=== PATIENT | female | born 1970 | race Two or more races ===

== ENCOUNTER 2024-01-13 13:45 | Inpatient (IN) | payer OTHER ==
[~2024-01-13] VITALS: Ht 152.4 cm; Wt 133.8 kg
[~2024-01-13 13:45] MED LIST: COZAAR100 MG
--- NOTE | 2024-01-13 13:57 | NUR ---
PACIENTE ALERTA Y ORIENTADA X 3. REFIERE CANSANCIO, DOLOR CORPORAL Y ASMA DESDE HACE 1 SEMANA. REFIERE FUE A CARDIOLOGO Y KEILA LE REALIZA EKG Y LE ENTREGA REFERIDO PARA ER. PACIENTE CON PULSO EN 156 AL REALIZAR TRIAGE.
[2024-01-13] MEDS ORDERED: AVALIDE 300-121 EACH PO (14:31)
[2024-01-13] MEDS ORDERED: DILTIAZEM HCL 25 MG/5 ML VIAL IV ONE (15:00)
--- NOTE | 2024-01-13 15:10 | NUR ---
PACIENTE EVALUADA POR QUIEN ORDENA TRATAMIENTO MEDICO, SE LE ORIENTA A PACIENTE SOBRE EL MISMO Y REFIERE ENTENDER, SE LE COLECTAN MUESTRAS Y SE CANALIZA BAJO MEDIDAS ASEPTICAS.
[2024-01-13 15:42] LABS: HEMATOCRIT 43.4 % (36.0-45.00); HEMOGLOBIN 13.2 g/dL (12.0-15.00); MEAN CELL VOLUME 75.2 fL (80.00-100.00); MEAN CORPUSCULAR HEMOGLOBIN 22.9 pg (27.00-32.0); MEAN CORPUSCULAR HGB CONC 30.5 g/dl (32.0-36.0); PLATELET COUNT 177 K/uL (150-450); RED BLOOD COUNT 5.78 M/uL (4.00-6.00); RED CELL DISTRIBUTION WIDTH 18.1 % (11.5-14.5)
[2024-01-13] MEDS ORDERED: AMIODARONE HCL 50 MG/ML AMPUL IV ONE (15:45)
[2024-01-13 16:00] LABS: INR 1.2; PARTIAL THROMBOPLASTIN TIME 24.3 SECONDS (22.0-34.0); PROTHROMBIN TIME 12.9 SECONDS (9.0-11.5)
[2024-01-13 16:06] LABS: BILIRUBIN TOTAL 1.43 mg/dL (0.3-1.2); CALCIUM 8.2 mg/dL (8.5-10.1); CREATININE SERUM 0.81 mg/dL (0.55-1.02); GFR 73.68; GLOBULINA 3.3 G/DL (2.4-3.5); POTASSIUM 3.9 mEq/L (3.5-5.1); TOTAL PROTEIN 6.3 gm/dL (6.4-8.2)
--- NOTE | 2024-01-13 17:29 | NUR ---
SE RECIBE PACIENTE ALERTA Y ORIENTADA X3. SE OBSERVA CON VENTURY MASK AL 50% EL CUAL TOLERA. PACIENTE CON DOS CANALIZACIONES EN RA Y LA CON ANGIOS #20 QUE SE ENCUENTRAN PATENTES, LIBRES DE EDEMA Y PROCESOS INFECCIOSOS. SE OBSERVA BAJANDO INFUSION DE NEXTERONE 360/200ML BAJANDO A 33ML/HR. PACIENTE SE ENCUENTRA CONECTADA A MONITOR CARDIACO Y OXIMETRIA DE PULSO CONTINUA PRESENTANDO VITALES DE BP: 101/77 (90), HR: 146 Y SPO2: 96%. EXTERMIDADES SUPERIORES LIBRES DE EDEMA. SE OBSERVA LEVE EDEMA EN EXTREMIDADES INFERIORES. SE MANTIENE EN OBSERVACION POR CAMBIOS SIGNIFICATIVOS EN [place] CONDICION. PENDIENTE CONSULTA CON MEDICINA INTERNA.
[2024-01-13 18:51] LABS: ABG PH 7.358 (7.35-7.45); ABG PO2 49.7 mmHg (80-100); ABG pCO2 53.2 mmHg (35-45); BASE EXCESS 2.5 mmol/l; BICARBONATE 29.2 mmol/l (23-25); SaO2 83.3 %; Tco2 30.8 mmol/l
[2024-01-13 18:52] LABS: allen test SATISFACTORY; o2 32 %; puncture site RADIAL RIGHT
[2024-01-13 19:28] VITALS: BP 116/55; O2SAT 99
[2024-01-13] MEDS ORDERED: IPRATROPIUM BROMIDE 0.5 MG/2.5 ML AMPUL.NEB IH SCH (19:45)
[2024-01-13] MEDS ORDERED: METHYLPREDNISOLONE SOD SUCC 125 MG VIAL IV ONE (19:45)
[2024-01-13] MEDS ORDERED: LEVALBUTEROL HCL 1.25 MG/3 ML SOLUTION IH SCH (19:45)
[2024-01-13] MEDS ORDERED: ACETAMINOPHEN 500 MG GEL..CAP PO PRN (19:45)
[2024-01-13 20:52] LABS: BILIRUBIN TOTAL 1.31 mg/dL (0.3-1.2); BILIRUBIN,CONJUGATED 0.66 mg/dL (0.0-0.2); BILIRUBIN,UNCONJUGATED 0.65 mg/dL (0.0-0.6)
[2024-01-13] MEDS ORDERED: ENOXAPARIN SODIUM 100 MG/ML SYRINGE SUBCUTANEO SCH (21:00)
[2024-01-13 21:28] LABS: ABG PH 7.327 (7.35-7.45); ABG PO2 62.8 mmHg (80-100); ABG pCO2 57.9 mmHg (35-45); BASE EXCESS 2.1 mmol/l; BICARBONATE 29.7 mmol/l (23-25); SaO2 89.9 %; Tco2 31.4 mmol/l
[2024-01-13 21:29] LABS: allen test SATISFACTORY; o2 100 %; puncture site RADIAL LEFT
[2024-01-13] MEDS ORDERED: 0.9 % SODIUM CHLORIDE 1,000 ML IV SCH (23:30)
[2024-01-13 23:31] VITALS: BP 119/91; O2SAT 90
[2024-01-14] VITALS (26 sets, daily range): BP systolic 78–142; BP diastolic 52–85; O2SAT 89–100
[2024-01-14] MEDS ORDERED: AZITHROMYCIN 500 MG VIAL IV SCH ×2 (00:10→21:00)
[2024-01-14] MEDS ORDERED: AZITHROMYCIN 500 MG VIAL IV STA (00:10)
[2024-01-14] MEDS ORDERED: CEFTRIAXONE SODIUM 2,000 MG VIAL IV SCH ×2 (00:11→17:00)
[2024-01-14] MEDS ORDERED: CEFTRIAXONE SODIUM 2,000 MG VIAL IV STA (00:11)
[2024-01-14] MEDS ORDERED: IPRATROPIUM BROMIDE 0.5 MG/2.5 ML AMPUL.NEB IH SCH (01:00)
[2024-01-14 07:38] LABS: CHOL HDL RATIO 7.9 (0-5.0); TSH 1.3 uIU/mL (0.358-3.74)
[2024-01-14 08:59] LABS: PH,URINE 5.5 (5.0-8.0); URINE APPEARANCE Clear; URINE BILIRRUBIN Small (NEGATIVE); URINE BLOOD Negative; URINE COLOR Dark Yellow; URINE GLUCOSE Negative (NEGATIVE); URINE KETONE Negative (NEGATIVE); URINE LEUKOCYTE Negative; URINE NITRATE Negative
[2024-01-14] MEDS ORDERED: ENOXAPARIN SODIUM SUBCUTANEO SCH (09:00)
[2024-01-14] MEDS ORDERED: ENOXAPARIN SODIUM 100 MG/ML SYRINGE SUBCUTANEO SCH (09:00)
[2024-01-14] MEDS ORDERED: HYDROCHLOROTHIAZIDE 25 MG TABLET PO SCH (09:00)
[2024-01-14] MEDS ORDERED: IRBESARTAN 300 MG TABLET PO SCH (09:00)
[2024-01-14] MEDS ORDERED: FAMOTIDINE/PF 20 MG in 0.9 % SODIUM CHLORIDE 8 ML IV PUSH SCH (09:00)
[2024-01-14 09:03] LABS: URINE BACTERIA 31.4 uL (0.0-1933); URINE CAST 7.48 uL (0.0-1.40); URINE EPITHELIAL CELLS 12.5 uL (0.0-38.8); URINE RBC 6.1 uL (0.0-20.8); URINE WBC 4.1 uL (0.0-23.2)
[2024-01-14 09:14] LABS: URINE PROTEIN 100 (NEGATIVE)
[2024-01-14] MEDS ORDERED: METOPROLOL TARTRATE 5MG/5ML AMPUL IV STA (09:21)
[2024-01-14] MEDS ORDERED: METOPROLOL SUCCINATE 100 MG TAB.SR.24H PO SCH ×2 (09:25→17:00)
[2024-01-14 12:32] LABS: ABG PH 7.303 (7.35-7.45); ABG PO2 64.1 mmHg (80-100); ABG pCO2 61.4 mmHg (35-45); BASE EXCESS 1.7 mmol/l; BICARBONATE 29.8 mmol/l (23-25); SaO2 89.7 %; Tco2 31.6 mmol/l
[2024-01-14 12:33] LABS: allen test SATISFACTORY; o2 21 %; puncture site RADIAL LEFT
[2024-01-14] MEDS ORDERED: ALTEPLASE 50 MG VIAL IV ONE (19:30)
[2024-01-14] MEDS ORDERED: SODIUM CHLORIDE 0.9% IV SCH (20:30)
[2024-01-14] MEDS ORDERED: HEPARIN SODIUM PORCINE IV SCH (20:30)
[2024-01-14 20:31] LABS: HEMATOCRIT 42.9 % (36.0-45.00); HEMOGLOBIN 13.7 g/dL (12.0-15.00); MEAN CELL VOLUME 74.1 fL (80.00-100.00); MEAN CORPUSCULAR HEMOGLOBIN 23.7 pg (27.00-32.0); PLATELET COUNT 180 K/uL (150-450); RED BLOOD COUNT 5.79 M/uL (4.00-6.00); RED CELL DISTRIBUTION WIDTH 18.6 % (11.5-14.5)
[2024-01-14 20:36] LABS: INR 1.21; PARTIAL THROMBOPLASTIN TIME 27.1 SECONDS (22.0-34.0)
[2024-01-14 20:44] LABS: ALBUMIN 2.9 gm/dL (3.4-5.0); BILIRUBIN TOTAL 0.8 mg/dL (0.3-1.2); CALCIUM 8.6 mg/dL (8.5-10.1); CREATININE SERUM 0.73 mg/dL (0.55-1.02); GFR 83.08; GLOBULINA 3.6 G/DL (2.4-3.5); POTASSIUM 5.13 mEq/L (3.5-5.1); TOTAL PROTEIN 6.5 gm/dL (6.4-8.2)
[2024-01-14 21:39] LABS: RH NEGATIVE
[2024-01-14] MEDS ORDERED: NOREPINEPHRINE BITARTRATE 4 MG in DEXTROSE 5 % IN WATER 250 ML IV SCH (22:30)
[2024-01-15] VITALS (17 sets, daily range): BP systolic 103–133; BP diastolic 63–93; O2SAT 93–100
[2024-01-15 12:18] LABS: ABG PO2 54.8 mmHg (80-100); ABG pCO2 48.9 mmHg (35-45); SaO2 88.9 %
[2024-01-15 12:19] LABS: BASE EXCESS 4.6 mmol/l; BICARBONATE 30.3 mmol/l (23-25); Tco2 31.8 mmol/l; allen test SATISFACTORY; puncture site RADIAL RIGHT
[2024-01-15 12:24] LABS: o2 100 %
[2024-01-15] MEDS ORDERED: HEPARIN SODIUM,PORCINE 5,000 UNITS/ML VIAL IJ SCH (13:00)
[2024-01-15] MEDS ORDERED: HEPARIN SODIUM,PORCINE 5,000 UNITS/ML VIAL IV SCH (17:00)
[2024-01-15 18:31] LABS: INR 1.22; PARTIAL THROMBOPLASTIN TIME 35.3 SECONDS (22.0-34.0); PROTHROMBIN TIME 13.1 SECONDS (9.0-11.5)
[2024-01-15] MEDS ORDERED: HEPARIN SODIUM,PORCINE 5,000 UNITS/ML VIAL IV STA (23:26)
[2024-01-16] VITALS (20 sets, daily range): BP systolic 83–153; BP diastolic 57–96; O2SAT 85–100
[2024-01-16 05:31] LABS: INR 1.16; PARTIAL THROMBOPLASTIN TIME 35.6 SECONDS (22.0-34.0); PROTHROMBIN TIME 12.5 SECONDS (9.0-11.5)
[2024-01-16] MEDS ORDERED: HEPARIN SODIUM,PORCINE 5,000 UNITS/ML VIAL IV SCH (08:00)
[2024-01-16] MEDS ORDERED: MIDAZOLAM HCL 2 MG/2 ML VIAL IV ONE (11:00)
[2024-01-16] MEDS ORDERED: FLUMAZENIL 0.5 MG/5 ML ML IV ONE (11:00)
[2024-01-16] MEDS ORDERED: FUROsemide 20 MG/2 ML VIAL IV NR (11:30)
[2024-01-16 14:46] LABS: HEMATOCRIT 42.7 % (36.0-45.00); HEMOGLOBIN 13.5 g/dL (12.0-15.00); MEAN CELL VOLUME 73.5 fL (80.00-100.00); MEAN CORPUSCULAR HEMOGLOBIN 23.3 pg (27.00-32.0); MEAN CORPUSCULAR HGB CONC 31.7 g/dl (32.0-36.0); RED BLOOD COUNT 5.82 M/uL (4.00-6.00); RED CELL DISTRIBUTION WIDTH 18.3 % (11.5-14.5)
[2024-01-16 14:56] LABS: PLATELET COUNT 117 K/uL (150-450)
[2024-01-16 15:05] LABS: ALBUMIN 2.9 gm/dL (3.4-5.0); BILIRUBIN TOTAL 0.9 mg/dL (0.3-1.2); CALCIUM 8.7 mg/dL (8.5-10.1); CREATININE SERUM 0.74 mg/dL (0.55-1.02); GFR 81.78; GLOBULINA 3.8 G/DL (2.4-3.5); INR 1.21; PARTIAL THROMBOPLASTIN TIME 36.1 SECONDS (22.0-34.0); POTASSIUM 3.93 mEq/L (3.5-5.1); TOTAL PROTEIN 6.7 gm/dL (6.4-8.2)
[2024-01-16] MEDS ORDERED: HEPARIN SODIUM,PORCINE 5,000 UNITS/ML VIAL IV ONE ×2 (16:00→21:45)
[2024-01-16 21:12] LABS: INR 1.15; PROTHROMBIN TIME 12.4 SECONDS (9.0-11.5)
[2024-01-16 21:23] LABS: PARTIAL THROMBOPLASTIN TIME 51.3 SECONDS (22.0-34.0)
[2024-01-17] VITALS (9 sets, daily range): BP systolic 118–132; BP diastolic 73–91; O2SAT 89–98
[2024-01-17 07:48] LABS: INR 1.16; PROTHROMBIN TIME 12.5 SECONDS (9.0-11.5)
[2024-01-17] MEDS ORDERED: RIVAROXABAN 20 MG TABLET PO SCH (09:45)
[2024-01-17 11:26] LABS: INR 1.19; PROTHROMBIN TIME 12.8 SECONDS (9.0-11.5)
[2024-01-17 11:29] LABS: PARTIAL THROMBOPLASTIN TIME 53.5 SECONDS (22.0-34.0)
[2024-01-17] MEDS ORDERED: AMIODARONE HCL 200 MG TABLET PO SCH (17:00)
[2024-01-17 20:12] LABS: ABG PH 7.353 (7.35-7.45); ABG PO2 94.4 mmHg (80-100); ABG pCO2 57.3 mmHg (35-45); BASE EXCESS 3.9 mmol/l; BICARBONATE 31.1 mmol/l (23-25); Tco2 32.9 mmol/l
[2024-01-17 20:13] LABS: allen test SATISFACTORY; o2 94 %; puncture site RADIAL RIGHT
[2024-01-18 04:05] VITALS: BP 130/85; O2SAT 89
[2024-01-18 07:43] VITALS: BP 145/95; O2SAT 82
[2024-01-18 08:32] LABS: INR 1.23; PARTIAL THROMBOPLASTIN TIME 28.2 SECONDS (22.0-34.0); PROTHROMBIN TIME 13.2 SECONDS (9.0-11.5)
[2024-01-18 11:48] LABS: ABG PH 7.374 (7.35-7.45)
[2024-01-18 11:49] LABS: BASE EXCESS 5.5 mmol/l; BICARBONATE 32.5 mmol/l (23-25); Tco2 34.2 mmol/l; allen test SATISFACTORY; o2 100 %; puncture site RADIAL RIGHT
[2024-01-18 12:21] VITALS: BP 136/85; O2SAT 91
[2024-01-18 15:19] VITALS: BP 138/84; O2SAT 98
[2024-01-18 19:58] VITALS: BP 134/85; O2SAT 99
[2024-01-18 23:15] VITALS: BP 146/97; O2SAT 95
[2024-01-19 03:59] VITALS: BP 137/89; O2SAT 100
[2024-01-19 07:29] VITALS: O2SAT 100
[2024-01-19] MEDS ORDERED: RIVAROXABAN 15 MG TABLET PO SCH (09:00)
[2024-01-19 09:09] LABS: HEMATOCRIT 41.5 % (36.0-45.00); HEMOGLOBIN 12.7 g/dL (12.0-15.00); MEAN CELL VOLUME 74.6 fL (80.00-100.00); MEAN CORPUSCULAR HEMOGLOBIN 22.8 pg (27.00-32.0); MEAN CORPUSCULAR HGB CONC 30.6 g/dl (32.0-36.0); PLATELET COUNT 171 K/uL (150-450); RED BLOOD COUNT 5.57 M/uL (4.00-6.00); RED CELL DISTRIBUTION WIDTH 17.8 % (11.5-14.5)
[2024-01-19 09:29] LABS: INR 1.41; PARTIAL THROMBOPLASTIN TIME 31.1 SECONDS (22.0-34.0)
[2024-01-19 09:53] LABS: ALBUMIN 2.4 gm/dL (3.4-5.0); BILIRUBIN TOTAL 0.84 mg/dL (0.3-1.2); CALCIUM 8.7 mg/dL (8.5-10.1); CREATININE SERUM 0.47 mg/dL (0.55-1.02); GFR 138.09; GLOBULINA 3.7 G/DL (2.4-3.5); MAGNESIUM 2.2 mg/dL (1.8-2.4); POTASSIUM 4.15 mEq/L (3.5-5.1); TOTAL PROTEIN 6.1 gm/dL (6.4-8.2)
[2024-01-19 12:00] VITALS: BP 123/75; O2SAT 97
[2024-01-19 13:04] LABS: ABG PH 7.357 (7.35-7.45)
[2024-01-19 13:05] LABS: ABG PO2 138.1 mmHg (80-100); ABG pCO2 61.5 mmHg (35-45); BASE EXCESS 6.1 mmol/l; BICARBONATE 33.8 mmol/l (23-25); Tco2 35.7 mmol/l
[2024-01-19 13:06] LABS: allen test SATISFACTORY; o2 21 %; puncture site RADIAL LEFT
[2024-01-19 15:28] VITALS: BP 128/92; O2SAT 91
[2024-01-19 20:00] VITALS: BP 117/77; O2SAT 98
[2024-01-19 23:25] VITALS: BP 128/88; O2SAT 92
[2024-01-20] VITALS (15 sets, daily range): BP systolic 101–130; BP diastolic 71–108; O2SAT 95–100
[2024-01-20 06:01] LABS: URINE APPEARANCE Turbid; URINE BILIRRUBIN Small (NEGATIVE); URINE BLOOD Moderate; URINE COLOR Red; URINE GLUCOSE Negative (NEGATIVE); URINE KETONE Negative (NEGATIVE); URINE LEUKOCYTE Moderate; URINE NITRATE Positive
[2024-01-20 06:05] LABS: URINE BACTERIA 895.8 uL (0.0-1933); URINE EPITHELIAL CELLS 21.4 uL (0.0-38.8); URINE WBC 339.8 uL (0.0-23.2)
[2024-01-20 06:15] LABS: URINE PROTEIN 100 (NEGATIVE); URINE RBC > 10558.9 uL (0.0-20.8)
[2024-01-20 06:18] LABS: HEMATOCRIT 39.5 % (36.0-45.00); MEAN CELL VOLUME 74.4 fL (80.00-100.00); MEAN CORPUSCULAR HEMOGLOBIN 22.5 pg (27.00-32.0); MEAN CORPUSCULAR HGB CONC 30.3 g/dl (32.0-36.0); PLATELET COUNT 169 K/uL (150-450); RED BLOOD COUNT 5.31 M/uL (4.00-6.00); RED CELL DISTRIBUTION WIDTH 17.5 % (11.5-14.5)
[2024-01-20 06:19] LABS: URINE CRYSTALS MODERATE /HPF
[2024-01-20 06:59] LABS: ALBUMIN 2.3 gm/dL (3.4-5.0); BILIRUBIN TOTAL 0.89 mg/dL (0.3-1.2); CREATININE SERUM 0.51 mg/dL (0.55-1.02); GFR 125.67; POTASSIUM 4.13 mEq/L (3.5-5.1); TOTAL PROTEIN 6.3 gm/dL (6.4-8.2)
[2024-01-20] MEDS ORDERED: AMIODARONE HCL 50 MG/ML AMPUL IV ONE (09:30)
[2024-01-20] MEDS ORDERED: METOPROLOL TARTRATE 25 MG TABLET PO SCH (21:00)
[2024-01-20] MEDS ORDERED: FUROsemide 40 MG/4 ML VIAL IV SCH (21:00)
[2024-01-21] VITALS (22 sets, daily range): BP systolic 104–143; BP diastolic 79–106; O2SAT 96–100
[2024-01-21] MEDS ORDERED: SODIUM CHLORIDE/ALOE VERA 14.1 GM GEL..GRAM. NASAL SCH (12:00)
[2024-01-21] MEDS ORDERED: DILTIAZEM HCL 125 MG in 0.9 % SODIUM CHLORIDE 100 ML IV SCH (12:30)
[2024-01-21] MEDS ORDERED: LACTOBACILLUS ACIDOPHILUS 1 CAP CAP PO SCH (17:00)
[2024-01-21] MEDS ORDERED: MEROPENEM 500 MG/VIAL VIAL IV SCH (18:00)
[2024-01-21] MEDS ORDERED: LINEZOLID IN DEXTROSE 5% 300 ML IV SCH (21:00)
[2024-01-22] VITALS (23 sets, daily range): BP systolic 95–136; BP diastolic 70–106; O2SAT 86–100
[2024-01-22] MEDS ORDERED: hydrALAZINE HCL 20 MG VIAL IV PRN (16:45)
[2024-01-22] MEDS ORDERED: METOPROLOL TARTRATE 50 MG TABLET PO SCH (17:00)
[2024-01-22 19:24] LABS: ABG PH 7.418 (7.35-7.45)
[2024-01-22 19:25] LABS: ABG PO2 83.1 mmHg (80-100); ABG pCO2 62.1 mmHg (35-45); BASE EXCESS 11.8 mmol/l; BICARBONATE 39.2 mmol/l (23-25); SaO2 96.7 %; Tco2 41.1 mmol/l; allen test SATISFACTORY; o2 100 %; puncture site RADIAL LEFT
[2024-01-22] MEDS ORDERED: hydrALAZINE HCL 25 MG TABLET PO SCH (21:00)
[2024-01-23] VITALS (22 sets, daily range): BP systolic 83–118; BP diastolic 65–95; O2SAT 86–100
[2024-01-23] MEDS ORDERED: FUROsemide 40 MG/4 ML VIAL IV SCH (09:00)
[2024-01-24] VITALS (15 sets, daily range): BP systolic 102–120; BP diastolic 69–96; O2SAT 87–100
[2024-01-24 08:01] LABS: HEMATOCRIT 38.6 % (36.0-45.00); HEMOGLOBIN 12.1 g/dL (12.0-15.00); MEAN CELL VOLUME 72.9 fL (80.00-100.00); MEAN CORPUSCULAR HEMOGLOBIN 22.8 pg (27.00-32.0); MEAN CORPUSCULAR HGB CONC 31.2 g/dl (32.0-36.0); PLATELET COUNT 192 K/uL (150-450)
[2024-01-24 08:43] LABS: ALBUMIN 2.2 gm/dL (3.4-5.0); BILIRUBIN TOTAL 0.89 mg/dL (0.3-1.2); CALCIUM 8.1 mg/dL (8.5-10.1); CREATININE SERUM 0.48 mg/dL (0.55-1.02); GFR 134.77; GLOBULINA 3.5 G/DL (2.4-3.5); POTASSIUM 3.96 mEq/L (3.5-5.1); TOTAL PROTEIN 5.7 gm/dL (6.4-8.2)
[2024-01-24 08:44] LABS: C-REACTIVE PROTEIN 10.1 MG/DL (0.00-0.29)
[2024-01-24] MEDS ORDERED: METOPROLOL TARTRATE 100 MG TABLET PO SCH (17:00)
[2024-01-24] MEDS ORDERED: METOPROLOL TARTRATE 50 MG,METOPROLOL TARTRATE 25 MG PO SCH (17:00)
[2024-01-24] MEDS ORDERED: AMIODARONE HCL 200 MG TABLET PO SCH (17:00)
[2024-01-25] VITALS (22 sets, daily range): BP systolic 88–126; BP diastolic 66–98; O2SAT 91–100
[2024-01-26] VITALS (23 sets, daily range): BP systolic 86–127; BP diastolic 54–99; O2SAT 93–100
[2024-01-26 06:59] LABS: HEMATOCRIT 37.8 % (36.0-45.00); HEMOGLOBIN 11.7 g/dL (12.0-15.00); MEAN CELL VOLUME 73.3 fL (80.00-100.00); MEAN CORPUSCULAR HEMOGLOBIN 22.8 pg (27.00-32.0); MEAN CORPUSCULAR HGB CONC 31.1 g/dl (32.0-36.0); PLATELET COUNT 205 K/uL (150-450); RED BLOOD COUNT 5.16 M/uL (4.00-6.00); RED CELL DISTRIBUTION WIDTH 16.2 % (11.5-14.5)
[2024-01-26 07:06] LABS: CALCIUM 8.2 mg/dL (8.5-10.1); CREATININE SERUM 0.45 mg/dL (0.55-1.02); GFR 145.2; MAGNESIUM 1.7 mg/dL (1.8-2.4); PHOSPHOROUS 2.5 mg/dL (2.5-4.9); POTASSIUM 3.44 mEq/L (3.5-5.1)
[2024-01-26] MEDS ORDERED: ACETAZOLAMIDE SODIUM 500 MG VIAL IV SCH (09:00)
[2024-01-26 10:41] LABS: ABG PH 7.441 (7.35-7.45); BASE EXCESS 18.2 mmol/l; BICARBONATE 46.7 mmol/l (23-25); SaO2 90.7 %; Tco2 48.8 mmol/l
[2024-01-26 11:11] LABS: ABG PO2 54.6 mmHg (80-100); ABG pCO2 70.1 mmHg (35-45)
[2024-01-26 11:12] LABS: allen test SATISFACTORY; o2 100 %; puncture site RADIAL LEFT
[2024-01-26] MEDS ORDERED: MAGNESIUM SULFATE IN WATER 4 GM/100 ML PIGGYBACK IV NR (17:45)
[2024-01-26] MEDS ORDERED: POTASSIUM PHOS,M-BASIC-D-BASIC 15 MM in 0.9 % SODIUM CHLORIDE 250 ML IV ONE (21:15)
[2024-01-27] VITALS (22 sets, daily range): BP systolic 91–127; BP diastolic 64–99; O2SAT 93–100
[2024-01-28] VITALS (20 sets, daily range): BP systolic 80–121; BP diastolic 53–778; O2SAT 95–100
[2024-01-28 11:23] LABS: HEMOGLOBIN 11.2 g/dL (12.0-15.00); MEAN CELL VOLUME 73.4 fL (80.00-100.00); MEAN CORPUSCULAR HEMOGLOBIN 22.8 pg (27.00-32.0); PLATELET COUNT 226 K/uL (150-450); RED CELL DISTRIBUTION WIDTH 16.9 % (11.5-14.5)
[2024-01-28 12:17] LABS: BILIRUBIN TOTAL 0.78 mg/dL (0.3-1.2); CALCIUM 7.6 mg/dL (8.5-10.1); GFR 241.07; GLOBULINA 3.1 G/DL (2.4-3.5); POTASSIUM 3.52 mEq/L (3.5-5.1); TOTAL PROTEIN 5.1 gm/dL (6.4-8.2)
[2024-01-28 12:19] LABS: CREATININE SERUM 0.29 mg/dL (0.55-1.02)
[2024-01-29] VITALS (11 sets, daily range): BP systolic 82–107; BP diastolic 62–80; O2SAT 98–100
[2024-01-29] MEDS ORDERED: DILTIAZEM HCL 30 MG TABLET PO SCH (01:00)
[2024-01-30 04:00] VITALS: BP 94/61; O2SAT 98
[2024-01-30 06:57] VITALS: BP 106/68; O2SAT 96
[2024-01-30 12:00] VITALS: BP 112/76; O2SAT 94
[2024-01-30 15:28] VITALS: BP 96/60; O2SAT 100
[2024-01-30 20:56] VITALS: BP 104/76; O2SAT 100
[2024-01-30 23:07] VITALS: BP 109/78; O2SAT 99
[2024-01-31] MEDS ORDERED: DIGOXIN 0.25 MG/ML AMPUL IV SCH (01:00)
[2024-01-31 03:57] VITALS: BP 104/78; O2SAT 100
[2024-01-31 07:33] VITALS: BP 109/76; O2SAT 100
[2024-01-31 15:14] VITALS: BP 117/76; O2SAT 100
[2024-01-31] MEDS ORDERED: AMIODARONE HCL 50 MG/ML AMPUL IV ONE (18:00)
[2024-01-31 20:00] VITALS: BP 123/98; O2SAT 98
[2024-01-31 23:37] VITALS: BP 137/97
[2024-02-01] VITALS (23 sets, daily range): BP systolic 95–135; BP diastolic 62–98; O2SAT 92–100
[2024-02-01] MEDS ORDERED: ONDANSETRON HCL 2 MG/ML VIAL ONE (08:24)
[2024-02-01] MEDS ORDERED: ONDANSETRON HCL 2 MG/ML VIAL IV PRN (08:30)
[2024-02-01 10:17] LABS: HEMATOCRIT 38.8 % (36.0-45.00); HEMOGLOBIN 12.1 g/dL (12.0-15.00); MEAN CELL VOLUME 72.1 fL (80.00-100.00); MEAN CORPUSCULAR HEMOGLOBIN 22.5 pg (27.00-32.0); MEAN CORPUSCULAR HGB CONC 31.3 g/dl (32.0-36.0); PLATELET COUNT 244 K/uL (150-450); RED BLOOD COUNT 5.38 M/uL (4.00-6.00); RED CELL DISTRIBUTION WIDTH 17.2 % (11.5-14.5)
[2024-02-01 11:10] LABS: ALBUMIN 2.3 gm/dL (3.4-5.0); BILIRUBIN TOTAL 0.64 mg/dL (0.3-1.2); CALCIUM 8.3 mg/dL (8.5-10.1); CREATININE SERUM 0.4 mg/dL (0.55-1.02); GFR 166.33; GLOBULINA 3.8 G/DL (2.4-3.5); POTASSIUM 3.68 mEq/L (3.5-5.1); TOTAL PROTEIN 6.1 gm/dL (6.4-8.2)
[2024-02-01 11:56] LABS: ABG PH 7.344 (7.35-7.45); ABG PO2 112.6 mmHg (80-100); ABG pCO2 61.2 mmHg (35-45); SaO2 98.1 %
[2024-02-01 11:57] LABS: BASE EXCESS 4.8 mmol/l; BICARBONATE 32.5 mmol/l (23-25); Tco2 34.4 mmol/l; allen test SATISFACTORY; o2 100 %; puncture site RADIAL LEFT
[2024-02-02] VITALS (22 sets, daily range): BP systolic 81–160; BP diastolic 58–98; O2SAT 87–100
[2024-02-03 03:56] VITALS: BP 111/81; O2SAT 100
[2024-02-03 07:31] VITALS: BP 113/65; O2SAT 100
[2024-02-03] MEDS ORDERED: DIGOXIN 0.125 MG TABLET PO SCH (09:00)
[2024-02-03] MEDS ORDERED: VITAMIN B COMPLEX 1 EACH PO SCH (09:00)
[2024-02-03] MEDS ORDERED: Cyanocobalamin/Mecobalamin 1 TAB.SL SL SCH (09:00)
[2024-02-03] MEDS ORDERED: SOD FERRIC GLUC COMPLX/SUCROSE 62.5 MG/5 ML AMPUL IV SCH (09:00)
[2024-02-03] MEDS ORDERED: AMIODARONE HCL 200 MG TABLET PO SCH (09:00)
[2024-02-03 12:00] VITALS: BP 115/81; O2SAT 90
[2024-02-03 15:29] VITALS: BP 123/88; O2SAT 92
[2024-02-03] MEDS ORDERED: CLOTRIMAZOLE 30 GM TUBE TOP SCH (17:00)
[2024-02-03 20:00] VITALS: BP 115/82; O2SAT 93
[2024-02-03 22:03] LABS: ABG PH 7.367 (7.35-7.45); ABG pCO2 55.2 mmHg (35-45)
[2024-02-03 22:04] LABS: ABG PO2 69.7 mmHg (80-100); BASE EXCESS 4.1 mmol/l; Tco2 32.7 mmol/l; allen test SATISFACTORY; o2 40 %; puncture site RADIAL LEFT
[2024-02-03 22:06] LABS: SaO2 93.3 %
[2024-02-03 23:19] VITALS: BP 113/83; O2SAT 95
[2024-02-04 04:00] VITALS: BP 93/81; O2SAT 100
[2024-02-04 07:00] VITALS: BP 108/83; O2SAT 99
[2024-02-04 10:05] LABS: HOMOCYSTEINE 5.9 umol/L (0.0-14.5)
[2024-02-04 12:00] VITALS: BP 105/65; O2SAT 97
[2024-02-04 15:14] VITALS: BP 97/74; O2SAT 94
[2024-02-04 20:00] VITALS: BP 115/73; O2SAT 93
[2024-02-04 23:19] VITALS: BP 114/80; O2SAT 91
[2024-02-05 03:58] VITALS: BP 105/77; O2SAT 97
[2024-02-05 07:38] VITALS: BP 118/88; O2SAT 100
[2024-02-05 12:00] VITALS: BP 99/70; O2SAT 96
[2024-02-05 15:21] VITALS: BP 118/90; O2SAT 97
[2024-02-05 16:08] LABS: ANTI-THROMBIN III 138 % (75-135); PROTEIN C ACTIVITY 81 % (73-180); PROTEIN C ANTIGEN 65 % (60-150); Protein s 72 % (60-150); Protein s free 92 % (61-136)
[2024-02-05 16:08] LABS: ANTI CARDIO IGG < 9 GPL U/mL (0-14); ANTI CARDIO IGM < 9 MPL U/mL (0-12)
[2024-02-05 18:04] LABS: dRVVT 120.2 sec (0.0-47.0); interp Comment: (.); ptt-la 58.2 sec (0.0-43.5)
[2024-02-05 20:00] VITALS: BP 91/62; O2SAT 96
[2024-02-05 23:24] VITALS: BP 137/99; O2SAT 95
[2024-02-06 04:00] VITALS: O2SAT 100
[2024-02-06 06:49] LABS: HEMATOCRIT 37.1 % (36.0-45.00); HEMOGLOBIN 11.8 g/dL (12.0-15.00); MEAN CELL VOLUME 71.8 fL (80.00-100.00); MEAN CORPUSCULAR HEMOGLOBIN 22.8 pg (27.00-32.0); MEAN CORPUSCULAR HGB CONC 31.7 g/dl (32.0-36.0); PLATELET COUNT 234 K/uL (150-450); RED BLOOD COUNT 5.16 M/uL (4.00-6.00); RED CELL DISTRIBUTION WIDTH 17.9 % (11.5-14.5)
[2024-02-06 07:19] LABS: ALBUMIN 2.5 gm/dL (3.4-5.0); BILIRUBIN TOTAL 0.84 mg/dL (0.3-1.2); CALCIUM 8.6 mg/dL (8.5-10.1); CREATININE SERUM 0.48 mg/dL (0.55-1.02); GFR 134.77; GLOBULINA 3.6 G/DL (2.4-3.5); POTASSIUM 4.4 mEq/L (3.5-5.1); TOTAL PROTEIN 6.1 gm/dL (6.4-8.2)
[2024-02-06 07:33] VITALS: BP 119/71; O2SAT 99
[2024-02-06 12:00] VITALS: BP 116/51; O2SAT 98
[2024-02-06 15:27] VITALS: BP 109/79; O2SAT 98
[2024-02-06] MEDS ORDERED: PIPERACILLIN/TAZOBACTAM SODIUM 3.375 GM in 0.9 % SODIUM CHLORIDE 100 ML IV SCH (18:00)
[2024-02-06 21:59] VITALS: BP 115/79; O2SAT 98
[2024-02-07] VITALS (8 sets, daily range): BP systolic 138–160; BP diastolic 74–93; O2SAT 93–98
[2024-02-08] VITALS (7 sets, daily range): BP systolic 138–149; BP diastolic 82–90; O2SAT 87–100
[2024-02-09] VITALS (10 sets, daily range): BP systolic 127–160; BP diastolic 62–83; O2SAT 90–100
[2024-02-09 08:06] LABS: HEMATOCRIT 36.3 % (36.0-45.00); HEMOGLOBIN 11.1 g/dL (12.0-15.00); MEAN CELL VOLUME 73.4 fL (80.00-100.00); MEAN CORPUSCULAR HEMOGLOBIN 22.5 pg (27.00-32.0); MEAN CORPUSCULAR HGB CONC 30.6 g/dl (32.0-36.0); PLATELET COUNT 205 K/uL (150-450); RED BLOOD COUNT 4.95 M/uL (4.00-6.00); RED CELL DISTRIBUTION WIDTH 18.1 % (11.5-14.5)
[2024-02-09 08:50] LABS: ALBUMIN 2.5 gm/dL (3.4-5.0); BILIRUBIN TOTAL 0.89 mg/dL (0.3-1.2); CALCIUM 8.5 mg/dL (8.5-10.1); CREATININE SERUM 0.43 mg/dL (0.55-1.02); GFR 153.02; GLOBULINA 3.5 G/DL (2.4-3.5); POTASSIUM 4.15 mEq/L (3.5-5.1)
[2024-02-09] MEDS ORDERED: RIVAROXABAN 15 MG TABLET PO SCH (09:00)
[2024-02-09 11:38] LABS: ABG PH 7.408 (7.35-7.45); ABG pCO2 55.1 mmHg (35-45); BASE EXCESS 7.4 mmol/l; SaO2 79.2 %; Tco2 35.6 mmol/l
[2024-02-09 11:40] LABS: o2 21 %
[2024-02-09 11:41] LABS: allen test SATISFACTORY; puncture site RADIAL LEFT
[2024-02-09 13:19] LABS: ABG PO2 42.2 mmHg (80-100)
[2024-02-10] VITALS (7 sets, daily range): BP systolic 132–161; BP diastolic 86–96; O2SAT 90–100
[2024-02-10] MEDS ORDERED: FUROsemide 20 MG TABLET PO SCH (09:00)
[2024-02-10] MEDS ORDERED: RIVAROXABAN 20 MG TABLET PO SCH (09:00)
[2024-02-11] VITALS (9 sets, daily range): BP systolic 132–143; BP diastolic 85–93; O2SAT 90–99
[2024-02-12] VITALS (8 sets, daily range): BP systolic 127–165; BP diastolic 78–96; O2SAT 90–98
[2024-02-13] VITALS (7 sets, daily range): BP systolic 97–168; BP diastolic 67–105; O2SAT 90–100
[2024-02-13 14:41] LABS: beta 2 gly iga < 9 (0-25); beta 2 gly igg < 9 (0-20); beta 2 gly igm < 9 (0-32)
[2024-02-13] MEDS ORDERED: DILTIAZEM HCL30 MG PO (16:51)
[2024-02-13] MEDS ORDERED: LANOXIN125 MCG PO (16:51)
[2024-02-13] MEDS ORDERED: XARELTO20 MG PO (16:51)
[2024-02-13] MEDS ORDERED: FUROSEMIDE20 MG PO (16:51)
[2024-02-13] MEDS ORDERED: AMIODARONE HCL200 MG PO (16:51)
[2024-02-13] MEDS ORDERED: B Complex PO (16:51)
[2024-02-13] MEDS ORDERED: METOPROLOL TAR100 MG PO (16:51)
[2024-02-13] MEDS ORDERED: CLOTRIMAZOLE45 G1 TOP (16:51)
[2024-02-13] MEDS ORDERED: Neurin-Sl Tablet Sl SL (16:51)
== END 2024-02-13 17:08 | disposition home or self-care (01) | DRG 291 ==
LOC: ER 13:45 → ICU-2 22:23 → ICU 01-16 20:12 → SURH 02-06 18:01
PROVIDERS: General Practice; Internal Medicine; Internal Medicine Geriatric Medicine; Internal Medicine Hematology & Oncology; ADMIT Internal Medicine; ATTEND Internal Medicine
PROC: B246ZZZ Ultrasonography of Right and Left Heart (ICD-10-PCS; principal; 2024-01-13)
PROC: B54DZZZ Ultrasonography of Bilateral Lower Extremity Veins (ICD-10-PCS; 2024-01-13)
PROC: 4A12X4Z Monitoring of Cardiac Electrical Activity, External Approach (ICD-10-PCS; 2024-01-13)
PROC: BB24YZZ Computerized Tomography (CT Scan) of Bilateral Lungs using Other Contrast (ICD-10-PCS; 2024-01-13)
PROC: 5A09457 Assistance with Respiratory Ventilation, 24-96 Consecutive Hours, Continuous Positive Airway Pressure (ICD-10-PCS; 2024-01-13)
PROC: 3E0F7GC Introduction of Other Therapeutic Substance into Respiratory Tract, Via Natural or Artificial Opening (ICD-10-PCS; 2024-01-13)
PROC: B020ZZZ Computerized Tomography (CT Scan) of Brain (ICD-10-PCS; 2024-01-14)
PROC: B246ZZZ Ultrasonography of Right and Left Heart (ICD-10-PCS; 2024-01-16)
PROC: 5A2204Z Restoration of Cardiac Rhythm, Single (ICD-10-PCS; 2024-01-16)
PROC: BB24YZZ Computerized Tomography (CT Scan) of Bilateral Lungs using Other Contrast (ICD-10-PCS; 2024-01-19)
PROC: 02HV33Z Insertion of Infusion Device into Superior Vena Cava, Percutaneous Approach (ICD-10-PCS; 2024-01-20)
DX: I50.811 Acute right heart failure (principal); I26.92 Saddle embolus of pulmonary artery without acute cor pulmonale; J18.9 Pneumonia, unspecified organism; J96.21 Acute and chronic respiratory failure with hypoxia; R57.0 Cardiogenic shock; I48.4 Atypical atrial flutter; I82.491 Acute embolism and thrombosis of other specified deep vein of right lower extremity; Z68.43 Body mass index [BMI] 50.0-59.9, adult; D68.61 Antiphospholipid syndrome; E87.4 Mixed disorder of acid-base balance; I11.0 Hypertensive heart disease with heart failure; R31.0 Gross hematuria; E87.6 Hypokalemia; E83.42 Hypomagnesemia; B35.6 Tinea cruris; G47.33 Obstructive sleep apnea (adult) (pediatric); G72.89 Other specified myopathies; E66.01 Morbid (severe) obesity due to excess calories; Y95 Nosocomial condition